=== PATIENT | female | born 1970 | race Caucasian/White ===

== ENCOUNTER 2023-10-21 09:16 | Day surgery (SDC) | payer BC ==
[~2023-10-21 09:16] MED LIST: Midazolam 1 MG/ML 2 ML SDV ONE; Propofol 200 MG/20 ML SDV ONE
[2023-10-21] MEDS ORDERED: Sodium Chloride 0.9% 10 ML Syringe FLUSH PRN (09:45)
[2023-10-21] MEDS: Lactated Ringers 1,000 ML IV SCH (09:53)
== END 2023-10-21 13:13 | disposition home or self-care (01) ==
LOC: LL.SDS 09:16
PROVIDERS: ATTEND Surgery
DX: Z12.11 Encounter for screening for malignant neoplasm of colon (principal); D12.2 Benign neoplasm of ascending colon; F33.42 Major depressive disorder, recurrent, in full remission; Z78.0 Asymptomatic menopausal state; Z79.899 Other long term (current) drug therapy
CPT/HCPCS: 00812; J2250; J2704; J7120

== ENCOUNTER 2024-02-24 07:53 | Day surgery (SDC) | payer BC ==
[2024-02-24] MEDS ORDERED: Sodium Chloride 0.9% 10 ML Syringe FLUSH PRN (08:00)
[2024-02-24] MEDS: Lactated Ringers 1,000 ML IV SCH (08:05)
[2024-02-24] MEDS ORDERED: Midazolam 1 MG/ML 2 ML SDV ONE (08:24)
[2024-02-24] MEDS ORDERED: Propofol 200 MG/20 ML SDV ONE (08:25)
[2024-02-24] MEDS ORDERED: Ondansetron 4 MG/2 ML SDV IVPUSH ONE (08:55)
== END 2024-02-24 10:49 | disposition home or self-care (01) ==
LOC: LL.SDS 07:53
PROVIDERS: ATTEND Surgery
DX: Z12.11 Encounter for screening for malignant neoplasm of colon (principal); D12.2 Benign neoplasm of ascending colon; R42 Dizziness and giddiness; H53.9 Unspecified visual disturbance; G47.00 Insomnia, unspecified; Z88.1 Allergy status to other antibiotic agents; Z86.010 Personal history of colon polyps
CPT/HCPCS: 00811; J2250; J2405; J2704; J7120

== ENCOUNTER 2025-03-08 10:28 | Day surgery (SDC) | payer BC ==
[~2025-03-08 10:28] MED LIST changes: -Midazolam 1 MG/ML 2 ML SDV ONE; -Propofol 200 MG/20 ML SDV ONE; +Sodium Chloride 0.9% 10 ML Syringe FLUSH PRN
[2025-03-08] MEDS: Lactated Ringers 1,000 ML IV SCH (10:33)
[2025-03-08] MEDS ORDERED: Propofol 200 MG/20 ML SDV ONE (11:08)
[2025-03-08] MEDS ORDERED: Midazolam 1 MG/ML 2 ML SDV ONE (11:08)
== END 2025-03-08 12:54 | disposition home or self-care (01) ==
LOC: LL.SDS 10:28
PROVIDERS: ATTEND Surgery
DX: Z12.11 Encounter for screening for malignant neoplasm of colon (principal); Z86.0101 Personal history of adenomatous and serrated colon polyps; F33.42 Major depressive disorder, recurrent, in full remission; Z79.899 Other long term (current) drug therapy
CPT/HCPCS: J7120